=== PATIENT | female | born 1945 | race Caucasian/White ===

== ENCOUNTER 2018-08-03 19:11 | Emergency (ER) | payer OTHER ==
[2018-08-03 19:19] VITALS: BP 177/64
--- NOTE | 2018-08-03 19:50 | EDPHY ---
H & P Time Seen by Provider: 08/03/18 19:20 HPI/ROS: HPI Right knee injury. 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 She was [place] up at [place]. She fell and twisted her right knee. She complains of isolated right knee pain and swelling. She called the nursing hotline for recommendations and was told to come to the emergency department to get an MRI. She denies any other injury or complaint. She did not hit her head. There was no loss of consciousness. ROS: Constitutional: No fever, no chills. No weakness. Musculoskeletal: No back pain. No neck pain. As above, no other extremity pain. Skin: No rashes. Neurological: No headache. No focal weakness or altered sensation. Past medical history: Hysterectomy, hypothyroid. Social history: Nonsmoker. No alcohol. She is originally from [place]. She has been living in this country for many years. She is a retired orthopedic surgeon. Physical Exam: General Appearance: Alert, no distress. This patient is responding to questions appropriately and in full sentences. This patient appears well- hydrated and well-nourished. Head: Normocephalic atraumatic. Eyes: Pupils equal and round no pallor or injection. No lid edema, erythema or injection. Right knee exam: She has a moderate effusion. She has tenderness along the lateral collateral ligament joint line. The knee is stable to gentle valgus and varus stress. The knee is stable to gentle anterior posterior drawer testing. No obvious bony deformity. The right lower extremity is neurovascularly intact. Neurological: Motor sensory function is grossly intact. Cranial nerves are normal. Skin: Warm and dry, no rashes. Extremities are symmetrical. All joints range without pain or impingement except noted. Psychiatric: No agitation. No depression. Database: EKG: Imaging: Procedures: Emergency department course: Triage vital signs reviewed. She is moderately hypertensive. Vital signs are otherwise normal. The patient came to the emergency department expecting to get an MRI in her right knee tonight. I explained that her injury although urgent was not a emergent. I explained she likely had a sprain of her lateral collateral ligament and an ACL tear. I discussed getting x-rays but she did not want to do this. I discussed putting the right knee in a brace and she did not want to do this either. She came with her own crutches. She does accept an Richard wrap around the right knee. Plan will be to have her follow up with Dr. Shahriar Kirkland of the Orthopedic service on Saturday or Saturday of this week for re-evaluation, MR imaging and further management. She and her daughter are in agreement with this plan. She feels comfortable going home with her daughter. She declines stronger pain medication that NSAIDs. She understands for follow- up. Return to emergency department precautions reviewed with the 2 of them. All of their questions were answered. The patient was discharged home in good condition with her daughter. Differential Diagnosis: The differential diagnosis on this patient includes but is not limited to lateral collateral ligament sprain versus tear, probable ACL tear. Tibial plateau fracture, femoral tibial dislocation, patellar dislocation unlikely. This represents a partial list of diagnoses considered. These considerations are based on history, physical exam, past history, reassessment and diagnostic testing. Smoking Status: Never smoked Constitutional: Initial Vital Signs Temperature (C) 36.6 C 08/03/18 19:15 Heart Rate 88 08/03/18 19:15 Respiratory Rate 16 08/03/18 19:15 Blood Pressure 177/64 H 08/03/18 19:15 O2 Sat (%) 95 08/03/18 19:15 O2 Delivery Mode Room Air Allergies/Adverse Reactions: Latex, Natural Rubber Allergy (Verified 08/03/18 19:19) Home Medications: Medication Instructions Recorded Synthroid 08/03/18 Departure - Departure Disposition: Home, Routine, Self-Care Clinical Impression: Right knee injury Condition: Good Instructions: ACL Injury (ED) Additional Instructions: Read and follow provided instructions. Follow-up with Dr. Shahriar Kirkland of the Orthopedic service for re-evaluation on Saturday or Saturday of this week. Call his office on Saturday morning to schedule an appointment. Explained this is for an emergency department follow- up for your right knee injury. Ibuprofen dosin mg every 6 hours with meals for the next 3 days only. Take only as needed for pain. Return to the emergency department for worsening pain, swelling, discoloration, deformity or other serious concerns. No weight-bearing to your right knee. The office of Dr. Shahriar Kirkland will provide you with the necessary paperwork to obtain a handicapped parking permit which will be obtained at the [facility] [place] [facility]. Referrals: Shahriar Kirkland MD [Medical Doctor] - As per Instructions
== END 2018-08-03 20:04 | disposition home or self-care (01) ==
DX: S89.91XA Unspecified injury of right lower leg, initial encounter (principal); V00.321A Fall from snow-skis, initial encounter; Y92.838 Other recreation area as the place of occurrence of the external cause; Y93.23 Activity, snow (alpine) (downhill) skiing, snowboarding, sledding, tobogganing and snow tubing; Y99.9 Unspecified external cause status